=== PATIENT | female | born 1945 | race Caucasian/White ===

== ENCOUNTER 2017-07-26 13:35 | Outpatient (CLI) | payer MEDICARE, BC | END 2017-07-26 13:36 | disposition home or self-care (01) | LOC: BICMAMMO 13:35 | PROVIDERS: ATTEND Internal Medicine | DX: Z12.31 Encounter for screening mammogram for malignant neoplasm of breast (principal); Z80.3 Family history of malignant neoplasm of breast | CPT/HCPCS: 77063; 77067 ==

== ENCOUNTER 2018-08-22 08:39 | Outpatient (CLI) | payer MEDICARE, BC ==
--- NOTE | 2018-08-22 09:22 | ULT ---
Exam: Right upper quadrant ultrasound DATE: 08/22/2018 HISTORY: Cholelithiasis. COMPARISON: Right upper quadrant ultrasound obtained at [facility] [place] [facility] on 04/28/2016. FINDINGS: There are tiny echogenic foci seen adjacent to the gallbladder wall which are nonmobile and measure l ess than 4 mm in maximal dimension. These echogenic foci were also seen on prior ultrasound examinati on are likely related to gallbladder polyps. No gallbladder calculus is visualized. There is no gallb ladder wall thickening or pericholecystic fluid. The common duct is normal in caliber and measures 0. 4 cm in diameter. The visualized portions of the IVC, visualized portions of the pancreas, liver, and right kidney demo nstrate a normal sonographic appearance. The right kidney measures 11.1 cm in length. IMPRESSION: Stable small gallbladder polyps measuring less than 4 mm. No gallbladder calculi are seen, and the co mmon duct is normal in caliber.
== END 2018-08-22 08:40 | disposition home or self-care (01) ==
LOC: BICULT 08:39
PROVIDERS: ATTEND Internal Medicine
DX: K80.20 Calculus of gallbladder without cholecystitis without obstruction (principal)
CPT/HCPCS: 76705

== ENCOUNTER 2019-03-25 16:09 | Outpatient (CLI) | payer MEDICARE, BC ==
--- NOTE | 2019-03-25 16:48 | MMO ---
Bilateral MAMMO Bilat Screen [facility]. CLINICAL HISTORY: Patient is 74 years old and is seen for screening. The patient has the following family history of breast cancer: mother, at age 45, premenopausal. The patient has no personal history of cancer. VIEWS: The views performed were: bilateral craniocaudal with tomosynthesis and bilateral mediolateral oblique with tomosynthesis. FILMS COMPARED: The present examination has been compared to prior imaging studies performed at [facility] on 06/10/2013, 08/08/2014, 03/17/2016 and 07/26/2017. This study has been interpreted with the assistance of computer-aided detection. MAMMOGRAM FINDINGS: There are scattered fibroglandular densities. There are new calcifications with grouped or clustered distribution seen in the MLO view only seen in the posterior central region of the right breast. In the left breast, there are no suspicious masses, calcifications or areas of architectural distortion. IMPRESSION: NEW CALCIFICATIONS IN THE RIGHT BREAST REQUIRE ADDITIONAL EVALUATION. RECOMMEND DIAGNOSTIC MAMMOGRAM. THE RESULTS OF THIS EXAM WERE SENT TO THE PATIENT. ACR BI-RADS Category 0 - Incomplete: Need additional imaging evaluation. [facility] will notify the patient of the need for additional imaging services. MAMMOGRAPHY NOTE: 1. A negative mammogram report should not delay a biopsy if a dominant of clinically suspicious mass is present. 2. Approximately 10% to 15% of breast cancers are not detected by mammography. 3. Adenosis and dense breasts may obscure an underlying neoplasm. Reported by: VINAY BHANDARI MD Electonically Signed: [id number]
== END 2019-03-25 16:10 | disposition home or self-care (01) ==
LOC: BICMAMMO 16:09
PROVIDERS: ATTEND Internal Medicine
DX: Z12.31 Encounter for screening mammogram for malignant neoplasm of breast (principal); R92.1 Mammographic calcification found on diagnostic imaging of breast; Z80.3 Family history of malignant neoplasm of breast
CPT/HCPCS: 77063; 77067

== ENCOUNTER 2019-04-02 12:21 | Outpatient (CLI) | payer MEDICARE, BC ==
--- NOTE | 2019-04-02 13:44 | MMO ---
Right Breast MAMMO Unilat Diag [facility]. CLINICAL HISTORY: Patient is 74 years old and is seen for diagnostic exam. The patient has the following family history of breast cancer: mother, at age 45, premenopausal. The patient has no personal history of cancer. VIEWS: The views performed were: right craniocaudal spot compression magnification; right mediolateral oblique spot compression magnification; right mediolateral spot compression magnification; right mediolateral with tomosynthesis; and right exaggerated craniocaudal spot compression magnification. FILMS COMPARED: The present examination has been compared to prior imaging studies performed at [facility] on 08/08/2014, 03/17/2016, 07/26/2017 and 03/25/2019. This study has been interpreted with the assistance of computer-aided detection. MAMMOGRAM FINDINGS: There are scattered fibroglandular densities. The tiny calcs in the right upper outer posterior breast have an indeterminate appearance and should be biopsied. IMPRESSION: FINDING IN THE RIGHT BREAST IS SUSPICIOUS. A STEREOTACTIC BREAST BIOPSY IS RECOMMENDED. THE RESULTS OF THIS EXAM WERE SENT TO THE PATIENT. ACR BI-RADS Category 4 - Suspicious abnormality - biopsy should be considered D/W pt in person @ 1340 hrs. MAMMOGRAPHY NOTE: 1. A negative mammogram report should not delay a biopsy if a dominant of clinically suspicious mass is present. 2. Approximately 10% to 15% of breast cancers are not detected by mammography. 3. Adenosis and dense breasts may obscure an underlying neoplasm. Reported by: YONY VACA MD Electonically Signed: [id number]
== END 2019-04-02 12:22 | disposition home or self-care (01) ==
LOC: BICMAMMO 12:21
PROVIDERS: ATTEND Internal Medicine
DX: R92.1 Mammographic calcification found on diagnostic imaging of breast (principal)
CPT/HCPCS: 77065; G0279

== ENCOUNTER 2019-04-25 07:10 | Outpatient (CLI) | payer MEDICARE, BC ==
[2019-04-25 11:59] LABS: #Eosinphils 0.1 thou/uL (0.0-0.7); #Lymphocytes 2.8 thou/uL (1.20-3.40); #Monocytes 0.4 thou/uL (0.11-0.59); #Neutrophils 3.8 thou/uL (1.40-6.50); %Basophils 0.7 % (0.0-1.0); %Eosinophils 1.3 % (0.0-10.0); %Lymphocytes 38.7 % (21.0-51.0); %Monocytes 6.2 % (0.0-10.0); %Neutrophils 53.1 % (42.0-75.0); Hemoglobin 13.7 g/dL (12.0-16.0); Mean Corpuscular HGB CONC 32.8 g/dL (32.0-36.0); Mean Corpuscular Hemoglobin 29.8 pg (27.0-31.0); Mean Corpuscular Volume 90.8 fL (78.0-98.0); Mean Platelet Volume 7.4 fL (7.4-10.4); Platelet Count 276 thou/uL (130-400); RBC Distribution Width 11.9 % (11.5-14.5); Red Blood Cell (RBC) Count 4.59 mill/uL (4.20-5.40); White Blood Cell (WBC) Count 7.2 thou/uL (4.8-10.8)
[2019-04-25 12:24] LABS: Anion Gap 10 mmol/L (10-20); BUN (Urea Nitrogen) 11 mg/dL (9.8-20.1); Calc. Creatinine Clearance 0 mL/min (70-130); Calcium 9.5 mg/dL (7.8-10.44); Carbon Dioxide 31 mmol/L (23-31); Chloride 98 mmol/L (98-107); Estimated GFR-MDRD 65; Glucose 107 mg/dL (83-110); Potassium 4.3 mmol/L (3.5-5.1); Sodium 135 mmol/L (136-145)
== END 2019-04-25 07:11 | disposition home or self-care (01) ==
LOC: LABBT 07:10
PROVIDERS: ATTEND Surgery
DX: Z01.812 Encounter for preprocedural laboratory examination (principal); C50.911 Malignant neoplasm of unspecified site of right female breast
CPT/HCPCS: 80048; 85025

== ENCOUNTER 2019-04-26 06:31 | Day surgery (SDC) | payer MEDICARE, BC ==
[2019-04-25 11:24] VITALS: BMI 25.4
--- NOTE | 2019-04-26 08:17 | MMO ---
MAMMO Brst Loc Dev Mammo Guide History: Right breast DCIS Comparison: Stereotactic biopsy April 10, 2019 Findings: Patient was brought to the mammography suite. All questions were answered. Consent was obta ined. Timeout performed. The patient's right breast was prepped and draped in normal sterile fashion. 5 mL lidocaine was insti lled into the superficial and deep soft tissues. The needle was localized from a lateral-medial approach. The tip of the needle is 11 mm deep to the c lip on the CC view and touching the clip on the lateral view. Impression: Technically successful mammographic guided needle localization.
--- NOTE | 2019-04-26 09:05 | NM ---
NM Lymphoscintigraphy History: Breast cancer Comparison: None Findings: A total of 4 aliquots of 0.49 mCi technetium 99m filtered sulfur color was instilled in 4 q uadrants around the areola. There is uptake within the right axillary lymph node. Impression: [place] uptake within the right axilla.
[2019-04-26] MEDS ORDERED: PROPOFOL 200 MG/20 ML VIAL ONE (10:51)
[2019-04-26] MEDS ORDERED: Dexamethasone 20 MG/5 ML VIAL ONE (10:51)
[2019-04-26] MEDS ORDERED: Ondansetron PF 4 MG/2 ML Vial ONE (10:51)
[2019-04-26] MEDS ORDERED: Midazolam HCl 2 mg/2 ml Vial ONE (11:33)
[2019-04-26] MEDS ORDERED: Fentanyl 100 MCG/2 ML VIAL ONE (11:33)
[2019-04-26] MEDS ORDERED: Bupivacaine 0.25% HCL 30 ML VIAL ONE (11:34)
[2019-04-26] MEDS ORDERED: Lidocaine 1% w/Epinephrine 1:100K 20 ML VIAL ONE (11:34)
[2019-04-26] MEDS ORDERED: Methylene Blue 50 MG/10 ML AMPUL ONE (12:23)
--- NOTE | 2019-04-26 13:33 | MMO ---
MAMMO Surgial Specimen History: DCIS Comparison: Needle localization same day Findings: Satisfactory specimen contains the needle and surgical clip. Impression: Satisfactory specimen as described.
[2019-04-26] MEDS ORDERED: HYDROcodone/Acetaminophen 5/325 mg Tablet ONE (15:01)
--- NOTE | 2019-04-29 09:39 | OP ---
DATE OF PROCEDURE: 04/26/2019 PREOPERATIVE DIAGNOSIS: Right breast ductal carcinoma in situ, high-grade. POSTOPERATIVE DIAGNOSIS: Right breast ductal carcinoma in situ, high-grade. PROCEDURES PERFORMED: 1. Partial mastectomy, right breast after needle localization. 2. Deep axillary node, right axilla after sentinel node protocol. ANESTHESIA: General. ESTIMATED BLOOD LOSS: Minimal. COMPLICATIONS: None. SPECIMENS: 1. Marked right breast mass, marked with 2 short superior and 1 long lateral, sent to Path for final diagnosis. 2. Right axillary node, sent to Path for final diagnosis. DESCRIPTION OF PROCEDURE: The patient underwent preoperative needle localization wire placement in the right breast to the area of previous biopsy as well as radioactive sulfur colloid injection to the right nipple and lymphoscintigraphy. She had uptake in the right axilla. She was taken to the operating room and laid supine on the operating room table. After general anesthetic was obtained, 5 mL of methylene blue dye was infiltrated under the right nipple, massaged for 10 minutes. The right breast, right axilla, and proximal arm and chest were all prepped and draped in a sterile fashion. Incision was made in the right breast around the entrance and needle localization wire. Flaps were raised superomedially and inferolaterally around the end of needle localization wire. The specimen was sent to specimen x-ray, revealed the mass to be in the specimen. The specimen was marked with 2 short superior and 1 long lateral, sent to Path for final diagnosis. Next, an incision was made on the inferior hairline of the right axilla. Neoprobe was used to find the area of increased uptake in the right axilla. The sentinel node was removed and sent to Path in formalin for final diagnosis. All incisions were irrigated and closed using 3-0 Vicryl, 4-0 Monocryl, and Dermabond. The patient was sent to Recovery in stable condition. All instrument counts, needle counts, and lap counts were correct. Job ID: [id number]
== END 2019-04-26 15:30 | disposition home or self-care (01) ==
LOC: SDC 06:31
PROVIDERS: ATTEND Surgery
PROC: 0HBT0ZZ Excision of Right Breast, Open Approach (ICD-10-PCS; principal; 2019-04-26)
PROC: 07B50ZX Excision of Right Axillary Lymphatic, Open Approach, Diagnostic (ICD-10-PCS; 2019-04-26)
DX: D05.11 Intraductal carcinoma in situ of right breast (principal); N60.31 Fibrosclerosis of right breast; Z79.810 Long term (current) use of selective estrogen receptor modulators (SERMs); Z79.899 Other long term (current) drug therapy
CPT/HCPCS: 19281; 19301; 38525; 38900; 76098; 78195; 88307; 88342; A9541; Q9968; J0690; J1100; J2250; J2405; J2704; J3010; S0020

== ENCOUNTER 2020-03-26 13:42 | Outpatient (CLI) | payer MEDICARE, BC ==
--- NOTE | 2020-03-26 14:07 | MMO ---
Bilateral MAMMO Bilat Diag [facility]. CLINICAL HISTORY: Patient is 75 years old and is seen for diagnostic exam. The patient has the following family history of breast cancer: mother, at age 45, premenopausal. The patient has a history of Excisional biopsy procedure revealed multifocal intraductal right breast carcinoma in April, and ductal carcinoma in situ. in the right breast in 2019. The patient has a history of right Lumpectomy in April, - dcis and right Stereotatic Biopsy in 2019 - dcis. VIEWS: The views performed were: bilateral craniocaudal with tomosynthesis; bilateral mediolateral oblique with tomosynthesis; and bilateral mediolateral with tomosynthesis. FILMS COMPARED: The present examination has been compared to prior imaging studies performed at [facility] on 03/17/2016, 07/26/2017, 03/25/2019 and 04/02/2019. This study has been interpreted with the assistance of computer-aided detection. MAMMOGRAM FINDINGS: The breasts are heterogeneously dense, which could obscure a lesion on mammography. There is a post-surgical scar seen in the right breast. There are benign appearing calcifications in the left breast. There are no suspicious masses, suspicious calcifications, or new areas of architectural distortion. IMPRESSION: THERE IS NO MAMMOGRAPHIC EVIDENCE OF MALIGNANCY. A ROUTINE FOLLOW-UP MAMMOGRAM IN 1 YEAR IS RECOMMENDED. THE RESULTS OF THIS EXAM WERE SENT TO THE PATIENT. ACR BI-RADS Category 2 - Benign finding MAMMOGRAPHY NOTE: 1. A negative mammogram report should not delay a biopsy if a dominant of clinically suspicious mass is present. 2. Approximately 10% to 15% of breast cancers are not detected by mammography. 3. Adenosis and dense breasts may obscure an underlying neoplasm. Reported by: YONY VACA MD Electonically Signed: [id number]
== END 2020-03-26 13:43 | disposition home or self-care (01) ==
LOC: BICMAMMO 13:42
PROVIDERS: ATTEND Internal Medicine Hematology & Oncology
DX: C50.511 Malignant neoplasm of lower-outer quadrant of right female breast (principal)
CPT/HCPCS: 77066; G0279

== ENCOUNTER 2020-11-30 12:48 | Outpatient (CLI) | payer MEDICARE, BC ==
[~2020-11-30 12:48] MED LIST: Magnevist 469MG/ML 20 ML VIAL ONE
== END 2020-11-30 12:49 | disposition home or self-care (01) ==
LOC: BICMRI 12:48
PROVIDERS: ATTEND Surgery
DX: D05.11 Intraductal carcinoma in situ of right breast (principal); Z80.3 Family history of malignant neoplasm of breast
CPT/HCPCS: 82565; C8908; A9579

== ENCOUNTER 2021-03-29 14:40 | Outpatient (CLI) | payer MEDICARE, BC | END 2021-03-29 14:41 | disposition home or self-care (01) | LOC: BICMAMMO 14:40 | PROVIDERS: ATTEND Internal Medicine Hematology & Oncology | DX: Z08 Encounter for follow-up examination after completed treatment for malignant neoplasm (principal); Z85.3 Personal history of malignant neoplasm of breast | CPT/HCPCS: 77066; G0279 ==

== ENCOUNTER 2021-10-14 09:21 | Outpatient (CLI) | payer MEDICARE, BC | END 2021-10-14 09:22 | disposition home or self-care (01) | LOC: BICMRI 09:21 | PROVIDERS: ATTEND Surgery | DX: Z15.01 Genetic susceptibility to malignant neoplasm of breast (principal); Z85.3 Personal history of malignant neoplasm of breast | CPT/HCPCS: 82565; C8908; A9577 ==

== ENCOUNTER 2022-03-30 12:27 | Outpatient (CLI) | payer MEDICARE, BC | END 2022-03-30 12:28 | disposition home or self-care (01) | LOC: BICMAMMO 12:27 | PROVIDERS: ATTEND Internal Medicine Hematology & Oncology | DX: C50.511 Malignant neoplasm of lower-outer quadrant of right female breast (principal); Z80.3 Family history of malignant neoplasm of breast; Z98.890 Other specified postprocedural states | CPT/HCPCS: 77066; G0279 ==

== ENCOUNTER 2023-01-26 13:59 | Outpatient (CLI) | payer MEDICARE, BC | END 2023-01-26 14:00 | disposition home or self-care (01) | LOC: BICMAMMO 13:59 | PROVIDERS: ATTEND Internal Medicine | DX: Z13.820 Encounter for screening for osteoporosis (principal) | CPT/HCPCS: 77080 ==

== ENCOUNTER 2023-03-31 13:07 | Outpatient (CLI) | payer MEDICARE, BC | END 2023-03-31 13:08 | disposition home or self-care (01) | LOC: BICMAMMO 13:07 | PROVIDERS: ATTEND Internal Medicine Hematology & Oncology | DX: Z08 Encounter for follow-up examination after completed treatment for malignant neoplasm (principal); Z85.3 Personal history of malignant neoplasm of breast | CPT/HCPCS: 77066; G0279 ==

== ENCOUNTER 2023-10-05 09:47 | Outpatient (CLI) | payer MEDICARE | END 2023-10-05 09:48 | disposition home or self-care (01) | LOC: BICMRI 09:47 | PROVIDERS: ATTEND Surgery | DX: Z08 Encounter for follow-up examination after completed treatment for malignant neoplasm (principal); Z15.01 Genetic susceptibility to malignant neoplasm of breast; Z85.3 Personal history of malignant neoplasm of breast | CPT/HCPCS: 82565; C8908; A9577 ==

== ENCOUNTER 2024-04-01 13:06 | Outpatient (CLI) | payer MEDICARE | END 2024-04-01 13:07 | disposition home or self-care (01) | LOC: BICMAMMO 13:06 | PROVIDERS: ATTEND Internal Medicine Hematology & Oncology | DX: Z08 Encounter for follow-up examination after completed treatment for malignant neoplasm (principal); Z85.3 Personal history of malignant neoplasm of breast | CPT/HCPCS: 77066; G0279 ==